=== PATIENT | male | born 2000 ===

== ENCOUNTER 2021-09-11 19:55 | Emergency (ER) | payer OTHER, SELFPAY ==
--- NOTE | ~2021-09-11 | XR_ITS ---
XR wrist LT min 3V DATE: 09/11/2021 20:21 INDICATION: Left wrist pain following a fall TECHNIQUE: 4 views COMPARISON: None FINDINGS: No fracture, dislocation, periosteal reaction or bone destruction, erosive change or chondr ocalcinosis. IMPRESSION: Negative Reviewed, dictated and finalized at location A. IMPRESSION: Negative
[2021-09-11 19:57] VITALS: BP 134/69; PULSE 109; RESP 18; TEMP 36.8; O2SAT 99
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
[2021-09-11 20:48] VITALS: PULSE 87; RESP 15; O2SAT 100
== END 2021-09-11 20:49 | disposition home or self-care (01) ==
PROVIDERS: Emergency Provider Emergency Medicine
DX: S63.502A Unspecified sprain of left wrist, initial encounter (principal); S66.912A Strain of unspecified muscle, fascia and tendon at wrist and hand level, left hand, initial encounter; V18.4XXA Pedal cycle driver injured in noncollision transport accident in traffic accident, initial encounter; Y93.55 Activity, bike riding
CPT/HCPCS: 73110; 99283